=== PATIENT | male | born 1985 | race African-American/Black ===

== ENCOUNTER 2017-02-08 07:20 | Emergency (ER) | payer SELFPAY ==
[~2017-02-08] VITALS: Ht 182.9 cm; Wt 63.5 kg
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
[2017-02-08 07:43] VITALS: BP 127/68
[2017-02-08] MEDS ORDERED: CLIN300C8 PO (08:00)
[2017-02-08] MEDS ORDERED: CLINDAMYCIN HCL 150 MG CAPSULE. PO ONE (08:00)
[2017-02-08] MEDS ORDERED: HYDR-971 PO (08:00)
[2017-02-08] MEDS ORDERED: DIPHTH,PERTUSS(ACELL),TET TOX 0.5 ML DISP.SYRIN. VAX IM ONE (08:30)
== END 2017-02-08 08:31 | disposition home or self-care (01) ==
LOC: ER 07:20
DX: K02.9 Dental caries, unspecified (principal); Z87.19 Personal history of other diseases of the digestive system
CPT/HCPCS: 90471; 90715; 99283-25

== ENCOUNTER 2017-04-15 15:38 | Emergency (ER) | payer SELFPAY ==
[~2017-04-15] VITALS: Ht 182.9 cm; Wt 72.6 kg
[~2017-04-15 15:38] MED LIST: CLIN300C8 PO; HYDR-971 PO
[2017-04-15 15:40] VITALS: BP 147/79
[2017-04-15] MEDS ORDERED: HYDROcodone/APAP 5/325MG 1 TAB TABLET PO ONE (16:15)
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
--- NOTE | 2017-04-15 16:29 | RAD ---
Right wrist, 3 views, 04/15/2017: History: Injury There is a metallic plate and screws in place transfixing an old healed fracture of the distal radius. There is a small nonunited ulnar styloid fracture fragment. No acute fracture or dislocation is identified. There is mild subcutaneous edema. IMPRESSION: No acute bony abnormality is detected.
[2017-04-15] MEDS ORDERED: CEPH500T PO (16:43)
[2017-04-15] MEDS ORDERED: TRAM-48 PO (16:43)
== END 2017-04-15 17:08 | disposition home or self-care (01) ==
LOC: ER 15:38
DX: S60.211A Contusion of right wrist, initial encounter (principal); W23.0XXA Caught, crushed, jammed, or pinched between moving objects, initial encounter; Y93.89 Activity, other specified; Y92.89 Other specified places as the place of occurrence of the external cause; Y99.8 Other external cause status
CPT/HCPCS: 29125; 73110; 99284-25